=== PATIENT | male | born 1995 | race Caucasian/White ===

== ENCOUNTER 2019-01-17 15:40 | Observation (INO) | payer BC ==
[2019-01-17 17:54] LABS: Absolute Lymphocytes (CBC) 1.7 K/uL (0.7-4.9); Basophils % 0.6 % (0-1.3); Hematocrit 47.1 % (39.6-49.0); Lymphocytes % 25.7 % (15.3-44.8); MPV 10.5 fL (7.6-11.3); RBC Red Blood Cell Count 5.31 M/uL (4.33-5.43)
[2019-01-17 18:06] LABS: ALT/SGPT 120 U/L (12-78); AST/SGOT 43 U/L (15-37); Alkaline Phosphatase 86 U/L (45-117); BUN Blood Urea Nitrogen 11 mg/dL (7-18); Bicarbonate 29 mmol/L (21-32); Bilirubin Direct 0.2 mg/dL (0-0.2); Bilirubin Total 0.6 mg/dL (0.2-1.0); Glucose Level 94 mg/dL (74-106); Lipase 79 U/L (73-393); Potassium 3.7 mmol/L (3.5-5.1); Protein, Total 7.1 g/dL (6.4-8.2); Sodium Level 141 mmol/L (136-145)
--- NOTE | 2019-01-17 18:36 | RAD REPORT ---
EXAM DESCRIPTION: US - Abdomen Exam Limited - 01/17/2019 6:07 pm CLINICAL HISTORY: Abdominal pain. COMPARISON: None. FINDINGS: The gallbladder wall is not thickened. A gallstone is not seen. The biliary tree is normal caliber. IMPRESSION: Unremarkable gallbladder ultrasound.
--- NOTE | 2019-01-17 18:36 | RAD REPORT ---
EXAM DESCRIPTION: CT - Abdomen Pelvis W Contrast - 01/17/2019 6:25 pm CLINICAL HISTORY: Abdominal pain COMPARISON: none. TECHNIQUE: Computed axial tomography of the abdomen pelvis was obtained. 100 cc Isovue-300 was admin istered intravenously. Oral contrast was not requested which limits evaluation of bowel. All CT scans are performed using dose optimization technique as appropriate and may include automated exposure control or mA/KV adjustment according to patient size. FINDINGS: The liver, spleen, pancreas, adrenal and kidneys appear unremarkable. There is no evidence of diverticulitis. The appendix is retrocecal and extends superiorly. It contains a small appendicolith. The appendix is dilated. Stranding is present within the adjacent fat. No free air IMPRESSION: Appendicitis.
--- NOTE | 2019-01-17 18:51 | EDPHYS ---
Physician Documentation [facility] Name: Harshil Rogers Age: 23 yrs Sex: Male : 1995 Arrival Date: 01/17/2019 Time: 15:42 Bed 30 Private MD: ED Physician Aidan Hood HPI: 01/17 19:15 This 23 yrs old Male presents to ER via Ambulatory with complaints of kb Abdominal Pain, Shortness Of Breath. 19:15 The patient presents with abdominal pain in the right upper quadrant, right lower kb quadrant. Onset: The symptoms/episode began/occurred last night. The symptoms do not radiate. Associated signs and symptoms: none. The symptoms are described as constant. Modifying factors: The symptoms are alleviated by nothing, the symptoms are aggravated by breathing deeply. Severity of pain: At its worst the pain was moderate in the emergency department the pain is unchanged. The patient has experienced similar episodes in the past, a few times. The patient has not recently seen a physician. Historical: - Allergies: 15:44 PENICILLINS; la1 18:48 CEPHALOSPORINS; ss - PMHx: 15:44 None; la1 - Immunization history:: Adult Immunizations up to date. - Social history:: Smoking status: Patient/guardian denies using tobacco. - Ebola Screening: : No symptoms or risks identified at this time. ROS: 19:14 Constitutional: Negative for fever, chills, and weight loss, ENT: Negative for injury, kb pain, and discharge, Neck: Negative for injury, pain, and swelling, Cardiovascular: Negative for chest pain, palpitations, and edema, Respiratory: Negative for shortness of breath, cough, wheezing, and pleuritic chest pain, Back: Negative for injury and pain, : Negative for injury, bleeding, discharge, and swelling, MS/Extremity: Negative for injury and deformity, Skin: Negative for injury, rash, and discoloration, Neuro: Negative for headache, weakness, numbness, tingling, and seizure. 19:14 Abdomen/GI: Positive for abdominal pain, Negative for nausea, vomiting, and diarrhea, constipation. Exam: 19:15 Constitutional: This is a well developed, well nourished patient who is awake, alert, kb and in no acute distress. Head/Face: Normocephalic, atraumatic. ENT: Nares patent. No nasal discharge, no septal abnormalities noted. Tympanic membranes are normal and external auditory canals are clear. Oropharynx with no redness, swelling, or masses, exudates, or evidence of obstruction, uvula midline. Mucous membranes moist. Neck: Trachea midline, no thyromegaly or masses palpated, and no cervical lymphadenopathy. Supple, full range of motion without nuchal rigidity, or vertebral point tenderness. No Meningismus. Chest/axilla: Normal chest wall appearance and motion. Nontender with no deformity. No lesions are appreciated. Cardiovascular: Regular rate and rhythm with a normal S1 and S2. No gallops, murmurs, or rubs. Normal PMI, no JVD. No pulse deficits. Respiratory: Lungs have equal breath sounds bilaterally, clear to auscultation and percussion. No rales, rhonchi or wheezes noted. No increased work of breathing, no retractions or nasal flaring. Back: No spinal tenderness. No costovertebral tenderness. Full range of motion. Skin: Warm, dry with normal turgor. Normal color with no rashes, no lesions, and no evidence of cellulitis. MS/ Extremity: Pulses equal, no cyanosis. Neurovascular intact. Full, normal range of motion. Neuro: Awake and alert, GCS 15, oriented to person, place, time, and situation. Cranial nerves II-XII grossly intact. Motor strength 5/5 in all extremities. Sensory grossly intact. Cerebellar exam normal. Normal gait. 19:15 Abdomen/GI: Inspection: abdomen appears normal, Bowel sounds: normal, in all quadrants, Palpation: soft, in all quadrants, moderate abdominal tenderness, in the right lower quadrant. Vital Signs: 15:44 BP 153 / 80; Pulse 70; Resp 16; Temp 98.3; Pulse Ox 100% on R/A; Weight 95.25 kg; la1 Height 5 ft. 11 in. (180.34 cm); 17:06 BP 130 / 69; Pulse 82; Resp 18; Pulse Ox 97% on R/A; aj1 18:05 BP 132 / 75; Pulse 72; Resp 18; Pulse Ox 97% on R/A; aj1 19:18 BP 145 / 70; Pulse 75; Resp 18; Pulse Ox 95% on R/A; aj1 15:44 Body Mass Index 29.29 (95.25 kg, 180.34 cm) la1 MDM: 17:00 Patient medically screened. kb 18:48 Data reviewed: vital signs, nurses notes. Data interpreted: Pulse oximetry: on room air kb is 97 %. Interpretation: normal. Counseling: I had a detailed discussion with the patient and/or guardian regarding: the historical points, exam findings, and any diagnostic results supporting the discharge/admit diagnosis, lab results, radiology results, the need for further work-up and treatment in the hospital. Physician consultation: Manny Chase MD was contacted at 18:48, regarding admission, to the medical/surgical unit. patient's condition, and will see patient in ED, shortly. 01/17 17:07 Order name: Basic Metabolic Panel; Complete Time: 18:12 kb 01/17 17:07 Order name: CBC with Diff; Complete Time: 18:12 kb 01/17 17:07 Order name: Hepatic Function; Complete Time: 18:12 kb 01/17 17:07 Order name: Lipase; Complete Time: 18:12 kb 01/17 17:07 Order name: CT Abd/Pelvis - IV Contrast Only; Complete Time: 18:41 kb 01/17 17:07 Order name: US Abdomen Limited; Complete Time: 18:41 kb 01/17 17:07 Order name: IV Saline Lock; Complete Time: 17:50 kb 01/17 17:07 Order name: Labs collected and sent; Complete Time: 17:50 kb Administered Medications: 19:16 Drug: Flagyl 500 mg Volume: 100 ml; Route: IVPB; Rate: 200 ml/hr; Infused Over: 30 aj1 mins; Site: right antecubital; 19:16 Drug: Cipro 400 mg Volume: 200 ml; Route: IVPB; Infused Over: 60 mins; Site: right aj1 antecubital; 19:17 Drug: NS 0.9% 1000 ml Route: IV; Rate: 1000 ml; Site: right antecubital; aj1 Disposition: 01/17/19 18:49 Hospitalization ordered by Manny Chase for Observation. Preliminary diagnosis is Acute appendicitis. - Bed requested for Telemetry/MedSurg (observation). - Status is Observation. aj1 - Condition is Stable. - Problem is new. - Symptoms are unchanged. UTI on Admission? No Addendum: 01/23/2019 08:01 Co-signature as Attending Physician, Aidan Hood MD I agree with the assessment and r n plan of care. Signatures: Dispatcher [employer] EDZoey Malcolm, TIER OVER-C TIER OVER-Ckb Tiffanie Pollack, RN RN aj1 Aidan Hood MD MD rn Smirch, Shelby, RN RN ss Sincere Gonzalez, HENRY RN la1 Corrections: (The following items were deleted from the chart) 01/17 19:41 18:49 Hospitalization Ordered by Manny Chase MD for Observation. Preliminary aj1 diagnosis is Acute appendicitis. Bed requested for Telemetry/MedSurg (observation). Status is Observation. Condition is Stable. Problem is new. Symptoms are unchanged. UTI on Admission? No. kb
--- NOTE | 2019-01-17 18:51 | ER ---
Nurse's Notes [facility] Name: Harshil Rogers Age: 23 yrs Sex: Male : 1995 Arrival Date: 01/17/2019 Time: 15:42 Bed 30 Private MD: Diagnosis: Acute appendicitis Presentation: 01/17 15:43 Presenting complaint: Patient states: Since last night I have been having some right la1 sided abd pain that hurts a lot worse when I take a deep breath. Transition of care: patient was not received from another setting of care. Onset of symptoms was January 17, 2019. Risk Assessment: Do you want to hurt yourself or someone else? Patient reports no desire to harm self or others. Initial Sepsis Screen: Does the patient meet any 2 criteria? No. Patient's initial sepsis screen is negative. Does the patient have a suspected source of infection? No. Patient's initial sepsis screen is negative. Care prior to arrival: None. 15:43 Method Of Arrival: Ambulatory la1 15:43 Acuity: KEVIN 3 la1 Historical: - Allergies: 15:44 PENICILLINS; la1 18:48 CEPHALOSPORINS; ss - PMHx: 15:44 None; la1 - Immunization history:: Adult Immunizations up to date. - Social history:: Smoking status: Patient/guardian denies using tobacco. - Ebola Screening: : No symptoms or risks identified at this time. Screenin:06 Abuse screen: Denies threats or abuse. Denies injuries from another. Nutritional aj1 screening: No deficits noted. Tuberculosis screening: No symptoms or risk factors identified. 19:40 Fall Risk None identified. aj1 Assessment: 17:06 General: Appears in no apparent distress. comfortable, Behavior is calm, cooperative, aj1 appropriate for age. Pain: Complains of pain in right lower quadrant Pain does not radiate. Pain currently is 3 out of 10 on a pain scale. Quality of pain is described as aching. Neuro: Level of Consciousness is awake, alert, obeys commands, Oriented to person, place, time, situation. Cardiovascular: Patient's skin is warm and dry. Respiratory: Airway is patent Respiratory effort is even, unlabored, Respiratory pattern is regular, symmetrical. GI: Abdomen is flat, non-distended, Bowel sounds present X 4 quads. Abd is soft and non tender X 4 quads. Reports lower abdominal pain, Patient currently denies diarrhea, nausea, vomiting. : No signs and/or symptoms were reported regarding the genitourinary system. EENT: No signs and/or symptoms were reported regarding the EENT system. Derm: No signs and/or symptoms reported regarding the dermatologic system. Skin is pink, warm \T\ dry. normal. Musculoskeletal: No signs and/or symptoms reported regarding the musculoskeletal system. Circulation, motion, and sensation intact. 18:05 Reassessment: Patient appears in no apparent distress at this time. No changes from aj1 previously documented assessment. Patient and/or family updated on plan of care and expected duration. Pain level reassessed. Patient is alert, oriented x 3, equal unlabored respirations, skin warm/dry/pink. 19:18 Reassessment: Patient appears in no apparent distress at this time. No changes from aj1 previously documented assessment. Patient and/or family updated on plan of care and expected duration. Pain level reassessed. Patient is alert, oriented x 3, equal unlabored respirations, skin warm/dry/pink. Vital Signs: 15:44 BP 153 / 80; Pulse 70; Resp 16; Temp 98.3; Pulse Ox 100% on R/A; Weight 95.25 kg; la1 Height 5 ft. 11 in. (180.34 cm); 17:06 BP 130 / 69; Pulse 82; Resp 18; Pulse Ox 97% on R/A; aj1 18:05 BP 132 / 75; Pulse 72; Resp 18; Pulse Ox 97% on R/A; aj1 19:18 BP 145 / 70; Pulse 75; Resp 18; Pulse Ox 95% on R/A; aj1 15:44 Body Mass Index 29.29 (95.25 kg, 180.34 cm) la1 ED Course: 15:42 Patient arrived in ED. as 15:44 Triage completed. la1 15:45 Arm band placed on left wrist. la1 17:00 Zoey Domínguez FNP-C is [facility]. kb 17:00 Aidan Hood MD is Attending Physician. kb 17:05 Tiffanie Pollack, HENRY is Primary Nurse. aj1 17:06 Patient has correct armband on for positive identification. aj1 17:06 No provider procedures requiring assistance completed. aj1 17:15 Initial lab(s) drawn, by me, sent to lab. Inserted saline lock: 20 gauge in right aj1 antecubital area, using aseptic technique. Blood collected. 17:18 Radiology exam delayed due to lab results not completed at this time. (BUN/Creatinine). nj 17:34 Radiology exam delayed due to lab results not completed at this time. (BUN/Creatinine). vm2 18:07 US Abdomen Limited In Process Unspecified. EDMS 18:[address] via wheelchair. nj 18:26 CT Abd/Pelvis - IV Contrast Only In Process Unspecified. EDMS 18:49 Manny Chase MD is Hospitalizing Provider. kb 19:40 Patient admitted, IV remains in place. aj1 Administered Medications: 19:16 Drug: Flagyl 500 mg Volume: 100 ml; Route: IVPB; Rate: 200 ml/hr; Infused Over: 30 aj1 mins; Site: right antecubital; 19:16 Drug: Cipro 400 mg Volume: 200 ml; Route: IVPB; Infused Over: 60 mins; Site: right aj1 antecubital; 19:17 Drug: NS 0.9% 1000 ml Route: IV; Rate: 1000 ml; Site: right antecubital; aj1 Outcome: 18:49 Decision to Hospitalize by Provider. kb 19:41 Admitted to OR accompanied by nurse, via wheelchair, with chart. aj1 19:41 Condition: good 19:41 Discharge instructions given to patient, Instructed on the need for admit, Demonstrated understanding of instructions. 19:41 Patient left the ED. aj1 Signatures: Dispatcher [employer] EDOK Zoey Domínguez, SENIOR UI DEVELOPER-C SENIOR UI DEVELOPER-CkTiffanie Melo RN RN aj1 Chanel Chase Shelby, HENRY FIGUEROA Sincere Gonzalez RN RN tom1 Nghia Macias [facility]
[2019-01-17] MEDS ORDERED: CIPROFLOXACIN 400mg IV 400 MG/200 ML BAG IV ONE (18:58)
[2019-01-17] MEDS ORDERED: METRONIDAZOLE 500mg IVPB 500 MG/100 ML BAG IV ONE (18:58)
[2019-01-17] MEDS ORDERED: NA CHLORIDE 0.9% 1,000 ML ONE (18:58)
[2019-01-17] MEDS ORDERED: PROPOFOL 200 MG/20 ML VIAL IV ONE (19:55)
[2019-01-17] MEDS ORDERED: ONDANSETRON 4 MG/2 ML VIAL ONE (19:55)
[2019-01-17] MEDS ORDERED: FENTANYL CITR 100 MCG/2 ML ONE (19:55)
[2019-01-17] MEDS ORDERED: MIDAZOLAM HCL 2 MG/2 ML INJ ONE (19:55)
[2019-01-17] MEDS ORDERED: GLYCOPYRROLATE 0.2 MG/ML SYR ONE (19:55)
[2019-01-17] MEDS ORDERED: LIDOCAINE 1% MPF 5 ML VIAL ONE (19:56)
[2019-01-17] MEDS ORDERED: NEOSTIGMINE 1 MG/ML -5 ML ONE (19:56)
[2019-01-17] MEDS ORDERED: ROCURONIUM 50 MG/5 ML VIAL IV ONE (19:56)
[2019-01-17] MEDS ORDERED: MORPHINE 10 MG/ML VIAL ONE (19:56)
[2019-01-17] MEDS ORDERED: KETOROLAC 30 MG/ML INJ ONE (19:56)
--- NOTE | 2019-01-17 20:39 | P.BOP ---
Preoperative diagnosis: acute appendicitis Postoperative diagnosis: same Primary procedure: Laparoscopic appendectomy Estimated blood loss: <10cc Specimen: teri Findings: as above Anesthesia: General Complications: None Transferred to: Recovery Room Condition: Good
[2019-01-17] MEDS ORDERED: ONDANSETRON 4 MG/2 ML VIAL IV PRN (20:44)
[2019-01-17] MEDS ORDERED: ACETAMINOPHEN 500 MG TAB PO PRN (20:44)
[2019-01-17] MEDS ORDERED: NA CHLORIDE 0.9% 1,000 ML IV SCH (20:44)
[2019-01-17] MEDS ORDERED: HYDROCODONE/APAP 5/325 MG TAB PO PRN (20:44)
[2019-01-17] MEDS ORDERED: Ringers Lactate 1,000 ML IV ONE (21:25)
[2019-01-17 22:39] VITALS: BMI 29.2
[2019-01-17] MEDS: MORPHINE 2 MG/ML SYR IV PRN (22:51)
[2019-01-17] MEDS: NA CHLORIDE 0.9% 1,000 ML IV SCH (22:51)
[2019-01-17] MEDS: METRONIDAZOLE 500mg IVPB 500 MG/100 ML BAG IV SCH (23:50)
--- NOTE | 2019-01-18 05:18 | HP ---
Date of Admission: 01/17/2019 Reason For Consultation: Acute appendicitis. History Of Present Illness: This is the case of a 23-year-old patient, who comes to us with right lo wer quadrant pain started from yesterday, getting worse today. Came to the ER with nausea, bloating, right lower quadrant pain, exquisite. The patient was seen in the ER initially diagnosed with acute appendicitis. Surgical consult was obtained for emergent surgery. He denies eating anything out of the usual. Denies any family member sick at home. Denies any dysuria, hematuria, hematochezia, or melena. Review of Systems: Ten points otherwise of unremarkable. Allergies: PENICILLIN AND CEPHALOSPORIN. Past Social History: He does not smoke. He does not drink alcohol. Past Medical Problems: None. Surgeries: None. Family History: Noncontributory. Physical Examination: General: The patient is awake and alert. HEENT: Pupils are equal and reactive, anicteric. Neck: Supple. Chest: Clear. Abdomen: Right lower quadrant tenderness with Rovsing sign and psoas signs, peritonitis. Genitalia: Deferred. Rectal: Deferred. Extremities: Good capillary refill. Neurologic: Cranial nerves 2 through 12 grossly within normal limits. Laboratory Data: WBC count of 6.7, hemoglobin of 16.5, platelets of 157, potassium is 3.7, BUN is 11 , creatinine is 1.02, total bilirubin of 0.6. CAT scan of the abdomen and pelvis shows appendicitis, appendix retrocecal, with appendicolith stranding is present. Abdominal ultrasound interpreted by Maria Luisa Small as unremarkable. Assessment And Plan: This is a 23-year-old patient with acute appendicitis. The benefits, alternati ves, and risks of laparoscopic, possible open appendectomy fully explained to the patient, which incl ude but are not limited to infection, bleeding, damage to adjacent structures, anesthesia complicatio ns, negative appendix, myocardial infarction and even . He also understands this may not reliev e his symptoms. He might need more than one surgical intervention. He understood, signed a consent. The OR was emergently called. NATHAN/JAUN Voice ID: [id number]
--- NOTE | 2019-01-18 05:27 | OP ---
Date of Procedure: 01/17/2019 Surgeon: Manny Chase MD Cheese Blender: None. Preoperative Diagnosis: Acute appendicitis. Postoperative Diagnosis: Acute appendicitis. Procedure: Laparoscopic appendectomy. Estimated Blood Loss: Less than 10 mL. Specimen: Appendix. Findings: Acute appendicitis. Indications: This is the case of a 23-year-old patient, who comes to us with acute appendicitis. Th e benefits, alternatives, and risks of laparoscopic, possible open appendectomy were fully explained, which include but are not limited to infection, bleeding, damage to adjacent structures, anesthesia complications, LA, and even . He also understands this may not relieve any symptoms. He might need more than one surgical intervention. He understood, signed the consent. Description Of Procedure: Patient was brought to the operating room, placed in supine position. Ane sthesia was given without complication. Abdominal area was prepped and draped in a usual sterile fas hion. Marcaine 0.5% was injected for local anesthetic, followed by sharp incision of the skin in the infraumbilical region. Incision was carried down to the fascia, which was opened under direct visio n. Peritoneum was encountered, opened under direct vision. Vicryl #1 placed inside of the fascia. [place] trocar was carefully introduced. No bleeding was obtained. I placed 2 more trocars, 5 mm eac h one of them, suprapubic and left lower quadrant under direct visualization. This allowed me to see the area of the appendix. It looks inflamed, retrocecal, mobilize the white lines of Toldt carefull y to be able to find the appendix. We were able to extract the appendix from the retrocecal area and then create a window in the base of the appendix, transected that with an Endo ANT 45 mm 3.5, and th e mesoappendix with an Endo ANT 45 mm 2.5. Appendix removed from abdominal cavity using an EndoCatch through the umbilical incision. The area was irrigated and suctioned. After visualization of the a marta, we obtained meticulous hemostasis. Suction was done. No bleeding. At that moment, I proceeded to remove the trocars under direct visualization, deflated the pneumoperitoneum, closed the fascia w ith #1 Vicryl, irrigated subcutaneous tissue, closed that with 3-0 chromic and skin with chevy. Sp onge count and instrument counts were correct. Patient tolerated the procedure well. Patient was se nt to the Recovery in stable condition. NATHAN/JAUN Voice ID: [id number] Report ID: [id number]
[2019-01-18] MEDS: METRONIDAZOLE 500mg IVPB 500 MG/100 ML BAG IV SCH ×2 (05:38→12:14)
[2019-01-18 06:09] LABS: Absolute Lymphocytes (CBC) 1.3 K/uL (0.7-4.9); Basophils % 0.2 % (0-1.3); Hematocrit 42.8 % (39.6-49.0); Lymphocytes % 21.9 % (15.3-44.8); MPV 10.4 fL (7.6-11.3); RBC Red Blood Cell Count 4.81 M/uL (4.33-5.43)
[2019-01-18 06:28] LABS: Urine Appearance CLEAR; Urine Bilirubin NEGATIVE (NEG); Urine Blood NEGATIVE (NEG); Urine Color YELLOW; Urine Glucose NEGATIVE (NEG); Urine Protein NEGATIVE (NEG); Urine Specific Gravity >=1.030 (1.005-1.030)
[2019-01-18 06:30] LABS: Albumin 3.1 g/dL (3.4-5.0); Bilirubin Direct 0.2 mg/dL (0-0.2); Bilirubin Total 0.7 mg/dL (0.2-1.0); Potassium 3.9 mmol/L (3.5-5.1); Protein, Total 5.7 g/dL (6.4-8.2)
[2019-01-18] MEDS: MORPHINE 2 MG/ML SYR IV PRN (06:33)
[2019-01-18] MEDS ORDERED: CIPROFLOXACIN 400mg IV 400 MG/200 ML BAG IV SCH (07:00)
[2019-01-18] MEDS: NA CHLORIDE 0.9% 1,000 ML IV SCH ×2 (07:00→12:13)
[2019-01-18 07:02] LABS: Urine Microscopic Reflex ORDER UMIC
[2019-01-18 07:48] LABS: Urine Bacteria <20 /HPF (NONE SEEN); Urine Culture Reflex Order REFLEXED; Urine RBC <5 /HPF (NONE SEEN)
[2019-01-18] MEDS ORDERED: PANTOPRAZOLE 40 MG INJ IVP SCH (09:00)
[2019-01-18 12:25] VITALS: O2SAT 98
--- NOTE | 2019-01-18 15:50 | P.DS ---
Admission Date: 01/17/19 Discharge Date: 01/18/19 Disposition: ROUTINE DISCHARGE Discharge Condition: GOOD Hospital Course: unremarkable Vital Signs/Physical Exam: Temp Pulse Resp BP Pulse Ox 98.0 F 71 17 109/55 L 97 01/18/19 08:00 01/18/19 08:00 01/18/19 08:00 01/18/19 08:00 01/18/19 08:00 General: Alert, In no apparent distress, Oriented x3, Cooperative HEENT: PERRLA, EOMI Neck: Supple Gastrointestinal: Soft and benign, No rebound, No guarding Musculoskeletal: No erythema, No tenderness, No warmth Integumentary: No erythema, No warmth, No cyanosis Neurological: Normal speech Laboratory Data at Discharge: WBC 6.1 K/uL (4.3-10.9) 01/18/19 05:33 Hgb 15.2 g/dL (13.6-17.9) 01/18/19 05:33 Hct 42.8 % (39.6-49.0) 01/18/19 05:33 Plt Count 129 K/uL (152-406) L 01/18/19 05:33 Sodium 141 mmol/L (136-145) 01/18/19 05:33 Potassium 3.9 mmol/L (3.5-5.1) 01/18/19 05:33 BUN 10 mg/dL (7-18) 01/18/19 05:33 Creatinine 1.04 mg/dL (0.55-1.3) 01/18/19 05:33 Glucose 98 mg/dL (74-106) 01/18/19 05:33 Total Bilirubin 0.7 mg/dL (0.2-1.0) 01/18/19 05:33 AST 35 U/L (15-37) 01/18/19 05:33 ALT 95 U/L (12-78) H 01/18/19 05:33 Alkaline Phosphatase 64 U/L (45-117) 01/18/19 05:33 Lipase 79 U/L (73-393) 01/17/19 17:25 Home Medications: Ciprofloxacin HCl [Cipro 500 MG Tablet] 500 mg PO Q12H 6 Days #12 tab 01/18/19 Codeine/APAP [Tylenol W/Codeine #3 tab] 1 tab PO Q4HP PRN #30 tab 01/18/19 New Medications: Ciprofloxacin HCl [Cipro 500 MG Tablet] 500 mg PO Q12H 6 Days #12 tab Codeine/APAP [Tylenol W/Codeine #3 tab] 1 tab PO Q4HP PRN #30 tab PRN Reason: Pain Followup: Manny Chase MD [ACTIVE - CAN ADMIT] -
[2019-01-18 17:57] VITALS: BP 119/62; TEMP 98.3
== END 2019-01-18 16:05 | disposition home or self-care (01) ==
LOC: ER 15:40 → ERHOLD 18:54 → 2ND 20:40
PROVIDERS: ADMIT Surgery; ATTEND Surgery
PROC: 0DTJ4ZZ Resection of Appendix, Percutaneous Endoscopic Approach (ICD-10-PCS; principal; 2019-01-17 19:56)
DX: K35.80 Unspecified acute appendicitis (principal); Z88.0 Allergy status to penicillin
CPT/HCPCS: 87088; 85025 ×2; 80048 ×2; 36415; 80076 ×2; 88304; 83690; 74177; 76705; 96375; 96374; 99285; 44970; Q9967; J2704; C9113; J2250; J3010; J2270 ×2; J2710; J7120; J7030 ×3; J2405; J0744 ×2; G0378 ×2; 81003; 81015; 87086

== ENCOUNTER 2020-03-05 12:30 | Emergency (ER) | payer BC ==
--- NOTE | 2020-03-05 14:53 | RAD REPORT ---
EXAM DESCRIPTION: Zo Chacon (2 Views)03/05/2020 2:03 pm CLINICAL HISTORY: Chest pain COMPARISON: None FINDINGS: The lungs appear clear of acute infiltrate. The heart is normal size IMPRESSION: No acute abnormalities displayed
--- NOTE | 2020-03-05 15:02 | ER ---
Nurse's Notes [facility] Name: Harshil Rogers Age: 24 yrs Sex: Male : 1995 Arrival Date: 03/05/2020 Time: 12:33 Bed 18 Private MD: Diagnosis: Chest pain on breathing Presentation: 03/05 12:37 Chief complaint: Patient states: left sided chest pain that started 3 days ago, reports em wrecking his snowboard 3 days while in [place] but does not remember any injury, also reports mild shortness of breath on exertion, denies fever or cough. Coronavirus screen: Client denies travel out of the [place] in the last 14 days. Ebola Screen: Patient negative for fever greater than or equal to 101.5 degrees Fahrenheit, and additional compatible Ebola Virus Disease symptoms Patient denies exposure to infectious person. Patient denies travel to an Ebola-affected area in the 21 days before illness onset. No symptoms or risks identified at this time. Initial Sepsis Screen: Does the patient meet any 2 criteria? No. Patient's initial sepsis screen is negative. Does the patient have a suspected source of infection? No. Patient's initial sepsis screen is negative. Risk Assessment: Do you want to hurt yourself or someone else? Patient reports no desire to harm self or others. Onset of symptoms was March 02, 2020. 12:37 Method Of Arrival: Ambulatory em 12:37 Acuity: KEVIN 3 em Historical: - Allergies: 12:43 CEPHALOSPORINS; em 12:43 PENICILLINS; em - PMHx: 12:43 None; em - PSHx: 12:43 Appendectomy; em - Immunization history:: Adult Immunizations up to date. - Social history:: Smoking status: Patient denies any tobacco usage or history of. Screenin:21 Abuse screen: Denies threats or abuse. Nutritional screening: No deficits noted. ll1 Tuberculosis screening: No symptoms or risk factors identified. Fall Risk None identified. Fall in past 12 months (25 points). Total Gomez Fall Scale indicates No Risk (0-24 pts). Assessment: 14:00 General: Appears in no apparent distress. Behavior is calm, cooperative, appropriate ll1 for age. Pain: Denies pain. Neuro: No deficits noted. Cardiovascular: Reports chest pain, Heart tones S1 S2 Capillary refill < 3 seconds Clubbing of nail beds is absent Patient's skin is warm and dry. Pulses are all present. Edema is absent. Respiratory: Reports pain with respiration Airway is patent Trachea midline Respiratory effort is even, unlabored, Respiratory pattern is regular, symmetrical, Breath sounds are clear bilaterally. Denies cough, shortness of breath. GI: No deficits noted. Bowel sounds present X 4 quads. Abd is soft and non tender X 4 quads. 15:00 Reassessment: No changes from previously documented assessment. Patient and/or family ll1 updated on plan of care and expected duration. Pain level reassessed. Patient is alert, oriented x 3, equal unlabored respirations, skin warm/dry/pink. Vital Signs: 12:37 BP 110 / 81; Pulse 67; Resp 18; Temp 98.5; Pulse Ox 100% on R/A; Weight 99.79 kg; em Height 5 ft. 11 in. (180.34 cm); Pain 7/10; 15:17 BP 110 / 88; Pulse 70; Resp 17; Pulse Ox 98% ; ll1 12:37 Body Mass Index 30.68 (99.79 kg, 180.34 cm) em ED Course: 12:33 Patient arrived in ED. rg4 12:41 Triage completed. em 12:43 Arm band placed on. em 13:46 Zoey Domínguez [facility]C [facility]. kb 13:46 Alex Kent MD is Attending Physician. kb 14:03 Chest Pa And Lat (2 Views) XRAY In Process Unspecified. EDMS 14:20 Hanna Maxwell, RN is Primary Nurse. ll1 15:21 No provider procedures requiring assistance completed. Patient did not have IV access ll1 during this emergency room visit. 15:22 Patient has correct armband on for positive identification. Bed in low position. Call ll1 light in reach. Side rails up X 1. Pulse ox on. NIBP on. Administered Medications: No medications were administered Outcome: 15:01 Discharge ordered by . kb 15:22 Discharged to home ambulatory. ll1 15:22 Condition: stable 15:22 Discharge instructions given to patient, Instructed on discharge instructions, follow up and referral plans. medication usage, Demonstrated understanding of instructions, follow-up care, medications, Prescriptions given X 1. 15:22 Patient left the ED. ll1 Signatures: Dispatcher [employer] EDMS Sang Zoey, PHOTOGRAPHIC LABORATORY SUPERVISOR-C PHOTOGRAPHIC LABORATORY SUPERVISOR-Ckb Delroy Arreaga, RN RN Lisbeth Rivas4 Hanna Maxwell RN RN ll1
--- NOTE | 2020-03-05 15:02 | EDPHYS ---
Physician Documentation [facility] Name: Harshil Rogers Age: 24 yrs Sex: Male : 1995 Arrival Date: 03/05/2020 Time: 12:33 Bed 18 Private MD: ED Physician Alex Kent HPI: 03/05 14:28 This 24 yrs old Male presents to ER via Ambulatory with complaints of kb Abdominal Pain, Shortness Of Breath. 14:28 The patient or guardian reports chest pain that is located primarily in the anterior kb chest wall, left. The pain does not radiate. Associated signs and symptoms: The patient has no apparent associated signs or symptoms. The chest pain is described as sharp, stabbing. Duration: The patient or guardian reports multiple episodes, that are intermittent. Modifying factors: the symptoms are aggravated by breathing, cough, deep breath, movement, palpation of area. Severity of pain: At its worst the pain was moderate in the emergency department the pain is unchanged. The patient has not experienced similar symptoms in the past. The patient has not recently seen a physician. Pt states he had a crash when skiing in [place] 4 days ago. States he flew home yesterday and while in the air felt a pain to left lower lung. States it is a sharp, stabbing pain when he takes a deep breath and it is tender to touch. Denies shortness of breath, palpitations or any other symptoms. . Historical: - Allergies: 12:43 CEPHALOSPORINS; em 12:43 PENICILLINS; em - PMHx: 12:43 None; em - PSHx: 12:43 Appendectomy; em - Immunization history:: Adult Immunizations up to date. - Social history:: Smoking status: Patient denies any tobacco usage or history of. ROS: 14:26 Constitutional: Negative for fever, chills, and weight loss, Abdomen/GI: Negative for kb abdominal pain, nausea, vomiting, diarrhea, and constipation, Back: Negative for injury and pain, MS/Extremity: Negative for injury and deformity, Skin: Negative for injury, rash, and discoloration, Neuro: Negative for headache, weakness, numbness, tingling, and seizure. 14:26 Cardiovascular: Positive for chest pain, with cough, with movement, of the left breast, Negative for edema, orthopnea, palpitations, paroxysmal nocturnal dyspnea. 14:26 Respiratory: Positive for pleurisy, of the left breast. Exam: 14:26 Constitutional: This is a well developed, well nourished patient who is awake, alert, kb and in no acute distress. Head/Face: Normocephalic, atraumatic. Cardiovascular: Regular rate and rhythm with a normal S1 and S2. No gallops, murmurs, or rubs. Normal PMI, no JVD. No pulse deficits. Respiratory: Lungs have equal breath sounds bilaterally, clear to auscultation and percussion. No rales, rhonchi or wheezes noted. No increased work of breathing, no retractions or nasal flaring. Abdomen/GI: Soft, non-tender, with normal bowel sounds. No distension or tympany. No guarding or rebound. No evidence of tenderness throughout. Skin: Warm, dry with normal turgor. Normal color with no rashes, no lesions, and no evidence of cellulitis. MS/ Extremity: Pulses equal, no cyanosis. Neurovascular intact. Full, normal range of motion. Neuro: Awake and alert, GCS 15, oriented to person, place, time, and situation. Cranial nerves II-XII grossly intact. Motor strength 5/5 in all extremities. Sensory grossly intact. Cerebellar exam normal. Normal gait. 14:26 Chest/axilla: Inspection: normal, Palpation: tenderness, that is moderate, of the left breast, that totally reproduces the patient's complaints. Vital Signs: 12:37 BP 110 / 81; Pulse 67; Resp 18; Temp 98.5; Pulse Ox 100% on R/A; Weight 99.79 kg; em Height 5 ft. 11 in. (180.34 cm); Pain 7/10; 15:17 BP 110 / 88; Pulse 70; Resp 17; Pulse Ox 98% ; ll1 12:37 Body Mass Index 30.68 (99.79 kg, 180.34 cm) em MDM: 14:17 Patient medically screened. kb 14:25 Data reviewed: vital signs, nurses notes. Data interpreted: Pulse oximetry: on room air kb is 100 %. Interpretation: normal. 15:01 Counseling: I had a detailed discussion with the patient and/or guardian regarding: the kb historical points, exam findings, and any diagnostic results supporting the discharge/admit diagnosis, radiology results, the need for outpatient follow up, a family practitioner, to return to the emergency department if symptoms worsen or persist or if there are any questions or concerns that arise at home. 03/05 13:46 Order name: Chest Pa And Lat (2 Views) XRAY; Complete Time: 14:56 kb Administered Medications: No medications were administered Disposition: 15:58 Co-signature as Attending Physician, Alex Kent MD I agree with the assessment and kdr plan of care. Disposition: 03/05/20 15:01 Discharged to Home. Impression: Chest pain on breathing. - Condition is Stable. - Discharge Instructions: Costochondritis, [id number], Pleurisy, [id number]. - Prescriptions for Ibuprofen 800 mg Oral Tablet - take 1 tablet by ORAL route every 8 hours As needed take with food; 30 tablet. - Medication Reconciliation Form, Thank You Letter, Antibiotic Education, Prescription Opioid Use form. - Follow up: Emergency Department; When: As needed; Reason: Worsening of condition. Follow up: Private Physician; When: 2 - 3 days; Reason: Recheck today's complaints, Continuance of care, Re-evaluation by your physician. Signatures: Dispatcher [employer] EDMS Zoey Domínguez, RIVET SPINNER-C RIVET SPINNER-Ckb Alex Kent MD MD [facility] Delroy Arreaga, HENRY RN em Hanna Maxwell RN RN ll1 Corrections: (The following items were deleted from the chart) 15:22 15:01 03/05/2020 15:01 Discharged to Home. Impression: Chest pain on breathing. ll1 Condition is Stable. Forms are Medication Reconciliation Form, Thank You Letter, Antibiotic Education, Prescription Opioid Use. Follow up: Emergency Department; When: As needed; Reason: Worsening of condition. Follow up: Private Physician; When: 2 - 3 days; Reason: Recheck today's complaints, Continuance of care, Re-evaluation by your physician. kb
[2020-03-05 15:27] VITALS: TEMP 98.5
[2020-03-05 15:29] VITALS: BP 110/88; O2SAT 98
== END 2020-03-05 15:22 | disposition home or self-care (01) ==
LOC: ER 12:30
DX: R07.1 Chest pain on breathing (principal); Z88.0 Allergy status to penicillin; Z88.3 Allergy status to other anti-infective agents
CPT/HCPCS: 71046; 99283